=== PATIENT | female | born 1990 | race Caucasian/White ===

== ENCOUNTER → 2019-12-14 | Outpatient (CLI) | payer OTHER ==
[2019-12-14 09:48] LABS: URINE BILIRUBIN NEGATIVE (Negative); URINE BLOOD NEGATIVE (Negative); URINE CLARITY CLEAR; URINE COLOR YELLOW; URINE GLUCOSE-RANDOM NEGATIVE (Negative); URINE KETONES NEGATIVE (Negative); URINE LEUKOCYTES-REFLEX NEGATIVE (Negative); URINE NITRITE-REFLEX NEGATIVE (Negative); URINE PROTEIN NEGATIVE (Negative); URINE UROBILINOGEN 0.2 E.U./dl (0.2-1.0)
[2019-12-14 09:54] LABS: ABSOLUTE BASOPHILS 0.1 thou/uL (0.0-0.2); ABSOLUTE EOSINOPHILS 0.1 thou/uL (0.0-0.7); ABSOLUTE LYMPHOCYTES 1.5 thou/uL (0.8-5.3); ABSOLUTE MONOCYTES 0.4 thou/uL (0.0-1.2); BASOPHILS 1.4 %; EOSINOPHILS 1.3 %; HEMATOCRIT 39.3 % (37.0-47.0); HEMOGLOBIN 13.5 gm/dL (12.0-15.0); LYMPHOCYTES 37.3 %; MCHC 34.4 g/dL (28.0-37.0); MCV 95.9 fL (80.0-100.0); MONOCYTES 9.2 %; MPV 10.9 fl. (7.2-11.1); NUCLEATED RBCS 0 /100WBC; PLATELET COUNT* 200 thou/uL (150-400); POLYS 50.8 %; RDW-CV 12.9 % (10.5-14.5); WBC 3.9 thou/uL (4.0-11.0)
[2019-12-14 10:04] LABS: ALBUMIN 3.7 g/dL (3.4-5.0); ALKALINE PHOSPHATASE 51 U/L (46-116); ANION GAP 9 mmol/L (7-16); BUN 13 mg/dL (7-18); CALCIUM 8.9 mg/dL (8.5-10.1); CHLORIDE 102 mmol/L (98-107); CHOLESTEROL 277 mg/dL (<200); CO2 27 mmol/L (21-32); CREATININE 0.9 mg/dL (0.6-1.3); GLUCOSE 80 mg/dL (70-99); HDL CHOLESTEROL 100 mg/dL (>40); LDL CHOLESTEROL 157 mg/dL (<100); POTASSIUM 4.3 mmol/L (3.5-5.1); SGOT 16 U/L (15-37); SGPT 23 U/L (30-65); SODIUM 138 mmol/L (136-145); TC:HDL 2.8 Ratio (Not establshd); TOTAL PROTEIN 7.8 g/dL (6.4-8.2); TRIGLYCERIDE 102 mg/dL (<150); VLDL 20 mg/dL (<40)
[2019-12-14 10:37] LABS: SERUM ASSESSMENT Clear
== END ==
LOC: M.LAB 09:23
PROVIDERS: ATTEND Family Medicine
DX: U07.1 COVID-19 (principal); E03.8 Other specified hypothyroidism; Z13.220 Encounter for screening for lipoid disorders; Z00.00 Encounter for general adult medical examination without abnormal findings; Z83.3 Family history of diabetes mellitus

== ENCOUNTER → 2020-05-25 | Outpatient (CLI) | payer OTHER ==
[2020-05-25 11:26] LABS: ABSOLUTE EOSINOPHILS 0.1 thou/uL (0.0-0.7); ABSOLUTE LYMPHOCYTES 1.7 thou/uL (0.8-5.3); ABSOLUTE MONOCYTES 0.5 thou/uL (0.0-1.2); ABSOLUTE NEUTROPHILS 2.9 thou/uL (1.6-8.1); BASOPHILS 0.9 %; EOSINOPHILS 1.3 %; HEMATOCRIT 38.4 % (37.0-47.0); HEMOGLOBIN 12.9 gm/dL (12.0-15.0); MCH 31.9 pg (26.0-34.0); MCHC 33.6 g/dL (28.0-37.0); MCV 94.8 fL (80.0-100.0); MONOCYTES 9.2 %; MPV 10.1 fl. (7.2-11.1); NUCLEATED RBCS 0 /100WBC; PLATELET COUNT* 187 thou/uL (150-400); POLYS 56.6 %; RBC 4.05 mil/uL (4.20-5.00); RDW-CV 13.1 % (10.5-14.5); WBC 5.2 thou/uL (4.0-11.0)
[2020-05-25 11:55] LABS: ALBUMIN 3.7 g/dL (3.4-5.0); ALKALINE PHOSPHATASE 57 U/L (46-116); ANION GAP 10 mmol/L (7-16); BUN 17 mg/dL (7-18); CALCIUM 9.4 mg/dL (8.5-10.1); CHLORIDE 102 mmol/L (98-107); CHOLESTEROL 223 mg/dL (<200); CO2 25 mmol/L (21-32); CREATININE 0.8 mg/dL (0.6-1.3); GLUCOSE 79 mg/dL (70-99); HDL CHOLESTEROL 91 mg/dL (>40); LDL CHOLESTEROL 118 mg/dL (<100); POTASSIUM 4.3 mmol/L (3.5-5.1); SERUM ASSESSMENT Clear; SGOT 16 U/L (15-37); SGPT 23 U/L (30-65); SODIUM 137 mmol/L (136-145); TC:HDL 2.5 Ratio (Not establshd); TOTAL BILIRUBIN 0.5 mg/dL (<0.1-1.0); TOTAL PROTEIN 7.5 g/dL (6.4-8.2); TRIGLYCERIDE 73 mg/dL (<150); VLDL 15 mg/dL (<40)
[2020-05-28 19:07] LABS: EBV VCA IgM <36.0 U/mL (0.0-35.9)
== END ==
LOC: M.LAB 11:03
DX: E78.00 Pure hypercholesterolemia, unspecified (principal); R59.0 Localized enlarged lymph nodes

== ENCOUNTER → 2020-06-06 | Outpatient (CLI) | payer OTHER | LOC: M.ULTRA 14:17 | PROVIDERS: ATTEND Family Medicine | DX: D49.2 Neoplasm of unspecified behavior of bone, soft tissue, and skin (principal) ==

== ENCOUNTER → 2021-01-16 | Outpatient (CLI) | payer OTHER ==
[2021-01-16 10:18] LABS: ABSOLUTE EOSINOPHILS 0.1 thou/uL (0.0-0.7); ABSOLUTE LYMPHOCYTES 1.5 thou/uL (0.8-5.3); ABSOLUTE MONOCYTES 0.5 thou/uL (0.0-1.2); ABSOLUTE NEUTROPHILS 2.2 thou/uL (1.6-8.1); BASOPHILS 0.9 %; EOSINOPHILS 2.2 %; HEMATOCRIT 40.3 % (37.0-47.0); HEMOGLOBIN 13.3 gm/dL (12.0-15.0); LYMPHOCYTES 35.1 %; MCH 31.3 pg (26.0-34.0); MCV 94.8 fL (80.0-100.0); MONOCYTES 11.1 %; MPV 9.9 fl. (7.2-11.1); NUCLEATED RBCS 0 /100WBC; PLATELET COUNT* 194 thou/uL (150-400); POLYS 50.7 %; RBC 4.25 mil/uL (4.20-5.00); RDW-CV 13.7 % (10.5-14.5); WBC 4.4 thou/uL (4.0-11.0)
[2021-01-16 10:28] LABS: URINE BILIRUBIN NEGATIVE (Negative); URINE BLOOD NEGATIVE (Negative); URINE CLARITY CLEAR; URINE COLOR YELLOW; URINE GLUCOSE-RANDOM NEGATIVE (Negative); URINE KETONES NEGATIVE (Negative); URINE LEUKOCYTES NEGATIVE (Negative); URINE NITRITE NEGATIVE (Negative); URINE PROTEIN NEGATIVE (Negative)
[2021-01-16 10:57] LABS: ALBUMIN 3.7 g/dL (3.4-5.0); ALKALINE PHOSPHATASE 62 U/L (46-116); ANION GAP 9 mmol/L (7-16); BUN 12 mg/dL (7-18); CHLORIDE 103 mmol/L (98-107); CHOLESTEROL 162 mg/dL (<200); CO2 28 mmol/L (21-32); CREATININE 0.8 mg/dL (0.6-1.3); GLUCOSE 85 mg/dL (70-99); HDL CHOLESTEROL 85 mg/dL (>40); LDL CHOLESTEROL 67 mg/dL (<100); POTASSIUM 4.5 mmol/L (3.5-5.1); SERUM ASSESSMENT Clear; SGOT 16 U/L (15-37); SGPT 24 U/L (30-65); SODIUM 140 mmol/L (136-145); TC:HDL 1.9 Ratio (Not establshd); TOTAL BILIRUBIN 0.8 mg/dL (<0.1-1.0); TOTAL PROTEIN 7.4 g/dL (6.4-8.2); TRIGLYCERIDE 52 mg/dL (<150); VLDL 10 mg/dL (<40)
== END ==
LOC: M.LAB 10:02
PROVIDERS: ATTEND Family Medicine
DX: E03.8 Other specified hypothyroidism (principal); E78.5 Hyperlipidemia, unspecified; Z68.26 Body mass index [BMI] 26.0-26.9, adult